=== PATIENT | female | born 1990 | race American Indian/Alaskan Native ===

== ENCOUNTER 2017-11-06 13:22 | Emergency (ER) | payer MEDICAID | END 2017-11-06 13:23 | disposition left against medical advice (07) | LOC: ED 13:22 | DX: N93.9 Abnormal uterine and vaginal bleeding, unspecified (principal); Z53.21 Procedure and treatment not carried out due to patient leaving prior to being seen by health care provider ==

== ENCOUNTER 2017-11-10 18:53 | Emergency (ER) | payer MEDICAID | END 2017-11-10 18:54 | disposition left against medical advice (07) | LOC: ED 18:53 | DX: R10.9 Unspecified abdominal pain (principal); Z53.21 Procedure and treatment not carried out due to patient leaving prior to being seen by health care provider ==